=== PATIENT | female | born 1965 | race American Indian/Alaskan Native ===

== ENCOUNTER 2016-07-14 07:08 | Day surgery (SDC) | payer MEDICAID, OTHER ==
[~2016-07-14 07:08] MED LIST: Bupivacaine 0.5% 10 ML SDV ONE; Lactated Ringers 1,000 ML IV SCH; Lidocaine 1% 30 ML SDV ONE; Sodium Chloride 0.9% 10 ML Syringe FLUSH PRN; ceFAZolin 1 GM in Premix Bag 1 BAG IV ONE
[2016-07-14] MEDS ORDERED: Bupivacaine 0.5% 10 ML SDV INJECT ONE ×3 (08:07→10:22)
[2016-07-14] MEDS ORDERED: Lidocaine 1% 30 ML SDV INJECT ONE ×3 (08:07→10:22)
[2016-07-14] MEDS ORDERED: Midazolam 1 MG/ML 2 ML SDV ONE (08:17)
[2016-07-14] MEDS ORDERED: Ketorolac 30 MG/ML SDV ONE (08:18)
[2016-07-14] MEDS ORDERED: Glycopyrrolate 0.2 MG/ML 2 ML SDV ONE (08:18)
[2016-07-14] MEDS ORDERED: fentaNYL 100 MCG/2 ML SDV ONE ×2 (08:18→10:32)
[2016-07-14] MEDS ORDERED: Ondansetron 4 MG/2 ML SDV ONE (08:18)
[2016-07-14] MEDS ORDERED: Dexamethasone 4 MG/ML SDV ONE (08:18)
[2016-07-14] MEDS ORDERED: Lidocaine 2% 20 ML MDV ONE (08:19)
[2016-07-14] MEDS ORDERED: Propofol 200 MG/20 ML SDV ONE (08:19)
[2016-07-14] MEDS ORDERED: HYDROmorphone 1 MG/ML Syringe ONE ×3 (10:45→11:00)
[2016-07-14] MEDS ORDERED: Acetaminophen/oxyCODONE 325-5 MG Tab PO PRN (10:52)
[2016-07-14] MEDS ORDERED: Lidocaine 1% 30 ML SDV ONE (11:15)
--- NOTE | 2016-07-14 11:22 | PCM.OPNOTE ---
- General Post-Op/Procedure Note Date of Surgery/Procedure: 07/14/16 Operative Procedure(s): Left foot 1st metatarsal bunionectomy with zuleyma osteotomy, great toe total matrixectomy Pre Op Diagnosis: Left foot painful bunion, painful dystrophic toenail Post-Op Diagnosis: darryl Anesthesia Technique: General LMA, Local Primary Surgeon: Lucia George Anesthesia Provider: Christiano Patterson EBL in mLs: 5 Complications: none Condition: Good Free Text/Narrative:: Intake & Output 07/13/16 07/14/16 07/14/16 22:59 06:59 14:59 Intake Total 50 Balance 50 Pt tolerated procedure well and was transported to pacu with vss and vascular status intact to left foot. TT 9 mins. [place] 3.0 and 2.0 screws used. Well padded dressing and cam boot placed.
[2016-07-14 13:23] VITALS: BP 124/69
[2016-07-14] MEDS ORDERED: Glycopyrrolate 0.2 MG/ML 2 ML SDV IV ONE (15:53)
[2016-07-14] MEDS ORDERED: Ketorolac 30 MG/ML SDV IVPUSH ONE (15:53)
[2016-07-14] MEDS ORDERED: Propofol 200 MG/20 ML SDV IV ONE (15:53)
[2016-07-14] MEDS ORDERED: Midazolam 1 MG/ML 2 ML SDV IV ONE (15:53)
[2016-07-14] MEDS ORDERED: fentaNYL 100 MCG/2 ML SDV IV ONE (15:53)
[2016-07-14] MEDS ORDERED: Dexamethasone 4 MG/ML SDV IV ONE (15:53)
[2016-07-14] MEDS ORDERED: HYDROmorphone 1 MG/ML Syringe IV ONE (15:55)
[2016-07-14] MEDS ORDERED: Ondansetron 4 MG/2 ML SDV IV ONE (15:55)
--- NOTE | 2016-07-14 21:54 | OR ---
DATE: 07/14/2016 PREOPERATIVE DIAGNOSES: 1. Left foot painful bunion deformity. 2. Left foot painful dystrophic toenail of the hallux. POSTOPERATIVE DIAGNOSES: 1. Left foot painful bunion deformity. 2. Left foot painful dystrophic toenail of the hallux. PROCEDURE PERFORMED: 1. Left foot 1st metatarsal osteotomy/bunionectomy with hardware fixation. 2. Left foot proximal phalanx Emanuel osteotomy. 3. Left foot hallux total matrixectomy. ANESTHESIA: Local with LMA, preoperative block of 10 mL of 1:1 mixture of 1% lidocaine plain and 0.5% Marcaine plain. TOTAL TOURNIQUET TIME: 99 minutes pneumatic ankle tourniquet. ESTIMATED BLOOD LOSS: Minimal. SPECIMEN REMOVED: None. COMPLICATIONS: None. INDICATIONS: Favio is a 50-year-old female, who presents with painful bunions on both feet, left foot is worse than the right. She states she has been dealing with these painful bunions for many years now and they are gradually worsening. She was seeing a doctor out at [facility] before he retired for the bunions. Was told to wear wider shoes and toe spacers, but that did not provide relief. She does get a callus on the big toe area which she files down regularly. She is on her feet for work, works at [employer] 8 hours a day. She also has pain to the left big toenail, which is very thick and she cannot trim them herself. X-rays of the left foot revealed medially deviated 1st metatarsal with IM angle of 14 degrees, hallux abductus angle of 32 degrees, there is a slight interphalangeal angle, possibly also slightly long 2nd metatarsal. The patient voiced good understanding of proposed procedure and possible complications and elects to have surgery at this time. DESCRIPTION OF PROCEDURE: The patient was taken to the operating room, lying in the supine position. After adequate anesthesia induction as described above, the left foot was prepped and draped in the usual sterile fashion. A pneumatic ankle tourniquet was then inflated to 225 mmHg. Attention was then directed to the dorsal aspect of the 1st metatarsal where an approximately 6 cm linear incision was made. Sharp and blunt dissection was performed down to the level of the joint capsule with care to gently retract all neurovascular bundles. An inverted L capsulotomy was made and the capsule was reflected to expose the distal 1st metatarsal. A hypertrophic medial eminence along with a subchondral cyst was noted at this area and was resected with a sagittal saw. The cyst was also curetted out. Blunt dissection was then performed in the 1st interspace to the level of the fibular sesamoid. The adductor hallucis tendon was transected from its attachment to the fibular sesamoid and a section was excised from the foot. A sagittal saw was then used to make a chevron-type osteotomy with a long dorsal arm angulated in a fashion that would allow lengthening of the capital fragment. The capital fragment was then transposed laterally approximately 8 mm and impacted to bring the hallux in a rectus alignment. A 0.062 inch K-wire was used as a guide for this. A K-wire from the screw set was then used as a temporary fixation. Two [place] 3.0 partially-threaded screws were then placed across the osteotomy site and the temporary fixation was then removed. The osteotomy site was noted to be stable with axial valgus and varus forces applied and with fluid range of motion of the 1st MTPJ. Fluoroscopy was used throughout this procedure to verify adequate reduction of the bunion deformity and proper screw fixation. The hallux was noted to still be at an angle due to the interphalangeus, so attention was then directed to the 1st proximal phalanx where an osteotomy was made parallel to the level of the articular cartilage and then a small wedge was taken out with the apex lateral. The bone was then approximated which provided the correction and a 2.0 [place] cannulated screw was placed across the osteotomy site and good compression was noted. Fluoroscopy was then again used to verify proper correction of the deformity and screw fixation. The 1st MTPJ was examined and the screw was not going into the joint. There was noted to be some arthritis at the medial aspect and that was drilled with a 0.062 inch K-wire. Along with the plantar aspect, there was some articular defect there that was drilled as well. The area was then irrigated with copious amounts of sterile saline. A medial capsulorrhaphy was performed. Capsular closure was completed with 2-0 Vicryl and skin closure was completed with 4-0 nylon. The hallux was noted to be in a near rectus alignment at this time. The area was then dressed with Xeroform, fluffs, Kerlix, and Quirino wrap. Attention was then directed to the hallux nail which was freed from the nail bed using a [place] elevator. The entire nail was then removed and a curette was used to clean the nail bed and ensure no matrix was remaining. A phenol was then used to kill the nail matrix 30 seconds x3. The area was then irrigated with saline. Bacitracin and a gauze dressing was placed with Coban. The patient tolerated the procedure and anesthesia well and left the operating room for recovery with vital signs stable and in good condition with vascular status intact to the left foot as noted by immediate hyperemia to all digits upon deflation of the ankle tourniquet. Total tourniquet time was 99 minutes. The patient was then discharged home when she met hospital discharge requirements. [facility] /[id number]
== END 2016-07-14 13:18 | disposition home or self-care (01) ==
LOC: DL.SDS 07:08
PROVIDERS: ATTEND Podiatrist
DX: M21.612 Bunion of left foot (principal); M20.5X2 Other deformities of toe(s) (acquired), left foot; Z90.49 Acquired absence of other specified parts of digestive tract; Z98.890 Other specified postprocedural states; F17.210 Nicotine dependence, cigarettes, uncomplicated; Z88.8 Allergy status to other drugs, medicaments and biological substances; Z79.82 Long term (current) use of aspirin; Z79.899 Other long term (current) drug therapy
CPT/HCPCS: 01480; 11750; 28296; 28298; 80305; 81025; J0690; J1100; J1170; J1885; J2250; J2405; J2704; J3010; J7120; C1713; J3490

== ENCOUNTER 2017-03-23 07:52 | Day surgery (SDC) | payer MEDICAID ==
[~2017-03-23 07:52] MED LIST changes: -Bupivacaine 0.5% 10 ML SDV ONE; -Lidocaine 1% 30 ML SDV ONE
[2017-03-23] MEDS ORDERED: Midazolam 1 MG/ML 2 ML SDV IV ONE (07:53)
[2017-03-23] MEDS ORDERED: fentaNYL 100 MCG/2 ML SDV IV ONE (07:53)
[2017-03-23] MEDS ORDERED: Dexamethasone 4 MG/ML SDV IV ONE (07:53)
[2017-03-23] MEDS ORDERED: Propofol 1,000 MG/100 ML SDV IV ONE (07:53)
[2017-03-23] MEDS ORDERED: Ondansetron 4 MG/2 ML SDV IV ONE (07:53)
[2017-03-23] MEDS ORDERED: Lidocaine 1% 30 ML SDV INJECT ONE ×5 (07:53→12:09)
[2017-03-23 08:22] LABS: ANION GAP 14.5; CHLORIDE,CL 97 mmol/L (101-111); SODIUM,NA 137 mmol/L (135-145)
[2017-03-23] MEDS ORDERED: Lidocaine 1% 30 ML SDV ONE (10:41)
[2017-03-23] MEDS ORDERED: Bupivacaine 0.5% 10 ML SDV ONE (10:41)
[2017-03-23] MEDS ORDERED: Bupivacaine 0.5% 10 ML SDV INJECT ONE ×4 (11:08→12:09)
[2017-03-23] MEDS ORDERED: Acetaminophen/oxyCODONE 325-5 MG Tab PO PRN (12:36)
--- NOTE | 2017-03-23 12:36 | PCM.OPNOTE ---
- General Post-Op/Procedure Note Date of Surgery/Procedure: 03/23/17 Operative Procedure(s): right foot first metatarsal osteotomy/bunionectomy, great toe permanent matrixectomy Pre Op Diagnosis: right foot painful bunion, great toenail painful ingrown Post-Op Diagnosis: darryl Anesthesia Technique: Local, MAC Primary Surgeon: Lucia George Anesthesia Provider: Dhaval Neumann EBL in mLs: 5 Complications: none Condition: Good Free Text/Narrative:: Intake & Output 03/22/17 03/23/17 03/23/17 22:59 06:59 14:59 Intake Total 50 Balance 50 Pt tolerated procedure well and was transported to recovery with vss and vascular status intact to right foot. TT 56 mins. [place] 3.0 cannulated screws to first metatarsal. Well padded compression dressing applied.
[2017-03-24 07:04] VITALS: BP 136/87
--- NOTE | 2017-03-24 12:48 | OR ---
DATE: 03/23/2017 PREOPERATIVE DIAGNOSES: 1. Right foot painful bunion deformity. 2. Painful ingrown toenail of the right great toe. POSTOPERATIVE DIAGNOSES: 1. Right foot painful bunion deformity. 2. Painful ingrown toenail of the right great toe. PROCEDURES PERFORMED: 1. Right foot first metatarsal osteotomy/bunionectomy. 2. Right great toenail permanent matrixectomy. ANESTHESIA: Local MAC with preoperative local block of 10 mL of 1:1 mixture of 1% lidocaine plain and 0.5% Marcaine plain. TOURNIQUET TIME: 56 minutes of pneumatic ankle tourniquet. ESTIMATED BLOOD LOSS: Minimal. SPECIMEN: None. COMPLICATIONS: None. INDICATIONS: Favio is a 51-year-old female who returns for recheck of left foot bunionectomy and now wants surgery on her right foot. Her left foot has healed well and she is no longer having any pain or issues with that foot. She would now like her right foot bunion surgery done. The pain is present to the bunion area on the right foot whenever she is standing or walking. She has tried wider shoes, activity modifications, bunion padding with no relief. Surgery for the left foot was on 07/14/2016, and she is well healed. X-rays of the right foot reveals medially deviated 1st metatarsal with IM angle of 9 degrees, but there is a metatarsus adductus component present. Bipartite sesamoid. The patient voiced good understanding of proposed procedure and possible complications and would like to have surgery at this time. She is also complaining of right great toenail that is painful for her and we did remove that left great toenail for her at the last surgery and she would like the right great toenail permanently removed today as well. DESCRIPTION OF PROCEDURE: The patient was taken to the operating room, lying in supine position. After adequate anesthesia induction as described above, right foot was prepped and draped in the usual sterile fashion. A pneumatic ankle tourniquet was inflated to 225 mmHg. Attention was then directed to the dorsal aspect of the 1st metatarsophalangeal joint of the right foot where an approximately 6 cm linear incision was made. Sharp and blunt dissection were performed down to the level of the joint capsule with care to gently retract all neurovascular bundles. An inverted-L capsulotomy was made and the capsule was reflected to expose the distal 1st metatarsal. A hypertrophic medial eminence was noted at this time and was resected with sagittal saw. Blunt dissection was performed in the 1st interspace to the level of the fibular sesamoid and the adductor hallucis tendon was transected from its attachment. A sagittal saw was used to make a chevron-type osteotomy with a long dorsal arm angulated in a fashion that would allow for dorsal displacement and maintenance of the length with lateral transposition of the capital fragment. The capital fragment was then transposed laterally 7 mm and impacted to bring the hallux in a rectus alignment. A 0.062 inch K-wire was used as temporary fixation. Two partially- threaded cannulated screws from [employer] 3.0 were then inserted at the osteotomy site. The osteotomy site was noted to be stable with axial, valgus, and varus force applied with good range of motion of 1st MTPJ. Fluoroscopy was used throughout this procedure to verify adequate reduction of the bunion deformity and proper screw placement and fixation. A medial capsulorrhaphy was performed. The area was flushed with copious amounts of sterile saline. Capsular closure was completed with 3-0 Vicryl, and skin closure was completed with 4-0 nylon. The hallux was noted to be in a near rectus alignment at this time. Attention was then directed to the right great toenail, which was completely removed using a [place] elevator. The nail matrix was curetted and phenol was applied to the area x3 for 30 seconds with curette between to ensure no regrowth. The area was then flushed with copious amounts of sterile saline. The incision and the toenail area were covered with a Xeroform dressing, fluffs, Webril, and a well- padded compressive dressing. The patient tolerated the procedure and anesthesia well and left to the recovery room with vital signs stable and vascular status intact to the right foot as noted by immediate hyperemia upon deflation of the ankle tourniquet. The patient was then discharged home when she met hospital discharge requirements. [facility] /[id number]
== END 2017-03-23 14:00 | disposition home or self-care (01) ==
LOC: DL.SDS 07:52
PROVIDERS: ATTEND Podiatrist
DX: L60.0 Ingrowing nail (principal); M21.611 Bunion of right foot; Z88.8 Allergy status to other drugs, medicaments and biological substances; F17.210 Nicotine dependence, cigarettes, uncomplicated; Z79.82 Long term (current) use of aspirin; Z79.899 Other long term (current) drug therapy
CPT/HCPCS: 01470; 11750; 28296; 36415; 80053; 85027; C1713; J0690; J1100; J2250; J2405; J2704; J3010; J7120; 76000

== ENCOUNTER 2017-12-05 02:59 | Emergency (ER) | payer MEDICAID ==
[2017-12-05] MEDS ORDERED: Acetaminophen/HYDROcodone 325-10 MG Tab PO ONE (03:00)
[2017-12-05] MEDS ORDERED: Amoxicillin/Clavulanate K 875-125 MG Tab PO ONE (03:00)
[2017-12-05 03:10] VITALS: BP 153/107
[2017-12-05] MEDS ORDERED: fentaNYL 100 MCG/2 ML SDV IVPUSH ONE ×2 (03:26→03:50)
[2017-12-05] MEDS ORDERED: cefTRIAXone 1 GM Vial IVPUSH ONE (03:26)
[2017-12-05] MEDS ORDERED: Ondansetron 4 MG/2 ML SDV IV ONE (03:27)
[2017-12-05 03:57] LABS: ANION GAP 13.7; CHLORIDE,CL 103 mmol/L (101-111); SODIUM,NA 137 mmol/L (135-145)
[2017-12-05] MEDS ORDERED: LORazepam 2 MG/ML Syringe IVPUSH ONE (04:20)
[2017-12-05] MEDS ORDERED: Amoxicillin/Clavulanate K 875-125 MG Tab ONE (05:22)
[2017-12-05] MEDS ORDERED: Acetaminophen/HYDROcodone 325-10 MG Tab ONE (05:24)
--- NOTE | 2017-12-05 05:26 | EDM.PDOC ---
"ED HPI GENERAL MEDICAL PROBLEM - General Chief Complaint: ENT Problem Stated Complaint: EAR ACHE [id number] Time Seen by Provider: 12/05/17 03:10 Source of Information: Reports: Patient History Limitations: Reports: No Limitations - History of Present Illness INITIAL COMMENTS - FREE TEXT/NARRATIVE: c/o severe left ear pain and drainage, Seen 11/[address] [facility] for draining ear given cortisporin ear drops. Unable to be seen again has not slept past few night due to pain. Fever/chills today. Treatments [employer]: Reports: Acetaminophen Left Ear Pain Score (Numeric/FACES): 9 - Related Data Allergies Allergy/AdvReac Type Severity Reaction Status Date / Time codeine Allergy Nausea and Verified 12/05/17 03:06 Vomiting Home Meds: Home Meds Aspirin 1 tab PO DAILY 07/13/16 [History] DULoxetine [Cymbalta] 1 tab PO BEDTIME 07/13/16 [History] Gabapentin [Neurontin] 1 tab PO TID 07/13/16 [History] traMADol [Ultram] 1 tab PO BID PRN 07/13/16 [History] Past Medical History - Past Health History Medical/Surgical History: Denies Medical/Surgical History HEENT History: Reports: None Cardiovascular History: Reports: None Respiratory History: Reports: None Gastrointestinal History: Reports: None Genitourinary History: Reports: None 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: Reports: Musculoskeletal History: Reports: Arthritis Other Musculoskeletal History: arthritis of both knees Neurological History: Reports: None Psychiatric History: Reports: None Endocrine/Metabolic History: Reports: None Hematologic History: Reports: None Immunologic History: Reports: None Oncologic (Cancer) History: Reports: None Dermatologic History: Reports: None - Infectious Disease History Infectious Disease History: Reports: None, Chicken Pox - Past Surgical History HEENT Surgical History: Reports: Tonsillectomy Cardiovascular Surgical History: Reports: None Respiratory Surgical History: Reports: None GI Surgical History: Reports: Appendectomy Female Surgical History: Reports: Section Musculoskeletal Surgical History: Reports: Other (See Below) Other Musculoskeletal Surgeries/Procedures:: right knee surgery (cementing) 2016. back surg. tibia scope Social & Family History - Family History Family Medical History: Noncontributory Cardiac: Reports: High Cholesterol, Hypertension Endocrine/Metabolic: Reports: Diabetes, type II - Tobacco Use Smoking Status *Q: Current Every Day Smoker Years of Tobacco use: 35 Packs/Tins Daily: 0.5 Used Tobacco, but Quit: No Second Hand Smoke Exposure: Yes - Caffeine Use Caffeine Use: Reports: Coffee - Recreational Drug Use Recreational Drug Use: No ED ROS ENT - Review of Systems Review Of Systems: ROS reveals no pertinent complaints other than HPI. ED EXAM, ENT - Physical Exam Exam: See Below Exam Limited By: No Limitations General Appearance: Alert, Anxious, Moderate Distress, Thin Eye Exam: Bilateral Eye: EOMI Ears: Normal Canal (right), Mastoid Swelling (left), Mastoid Tenderness (left), Canal Discharge (copious brown anne drainage), Canal Swelling (left) Nose: Normal Inspection Mouth/Throat: Normal Inspection Head: Atraumatic, Normocephalic Neck: Full Range of Motion, Lymphadenopathy (L) Respiratory/Chest: No Respiratory Distress, Lungs Clear, Normal Breath Sounds Cardiovascular: Normal Peripheral Pulses, Tachycardia Back: Full Range of Motion Extremities: Normal Inspection Psychiatric: Anxious Skin: Warm, Wound/Incision (crusting outer left ear, cuticles fingers red, Left 34d red mild swelling around nail. ) Course - Vital Signs Last Recorded V/S: Last Vital Signs Temp 99.8 F 12/05/17 03:09 Pulse 137 H 12/05/17 03:09 Resp 20 12/05/17 03:09 BP 153/107 H 12/05/17 03:09 Pulse Ox 96 12/05/17 03:09 - Orders/Labs/Meds Orders: Active Orders 24 hr Category Date Time Status Head wo Cont [CT] Urgent Exams 12/05/17 03:24 Taken CULTURE EAR [RM] Stat Lab 12/05/17 03:20 Received UA W/MICROSCOPIC [URIN] Stat Lab 12/05/17 04:25 Ordered Labs: Laboratory Tests 12/05/17 12/05/17 12/05/17 Range/Units 03:25 03:25 03:25 WBC 11.2 H (5.0-10.0) 10^3/uL RBC 3.72 L (4.2-5.4) 10^6/uL Hgb 11.8 L D (12.0-16.0) g/dL Hct 35.9 L (37.0-47.0) % MCV 96.5 (80-100) fL MCH 31.7 (27.0-34.0) pg MCHC 32.9 L (33.0-35.0) g/dL Plt Count 284 D (150-450) 10^3/uL Neut % (Auto) 76.1 H (42.2-75.2) % Lymph % (Auto) 19.3 L (20.5-50.1) % [place] % (Auto) 3.6 (2-8) % Eos % (Auto) 0.7 L (1.0-3.0) % Baso % (Auto) 0.3 (0.0-1.0) % Sodium 137 (135-145) mmol/L Potassium 3.7 (3.6-5.0) mmol/L Chloride 103 (101-111) mmol/L Carbon Dioxide 24.0 (21.0-31.0) mmol/L Anion Gap 13.7 BUN 11 (7-18) mg/dL Creatinine 0.5 L (0.6-1.3) mg/dL Est Cr Clr Drug Dosing 155.34 mL/min Estimated GFR (MDRD) > 60 BUN/Creatinine Ratio 22.00 Glucose 83 (74-105) mg/dL Lactic Acid 1.9 (0.5-2.2) mmol/L Calcium 7.6 L (8.4-10.2) mg/dl Total Bilirubin 0.3 (0.2-1.0) mg/dL AST 37 (10-42) IU/L ALT 32 (10-60) IU/L Alkaline Phosphatase 63 (42-121) IU/L Total Protein 8.1 (6.7-8.2) g/dl Albumin 2.6 L (3.2-5.5) g/dl Globulin 5.5 Albumin/Globulin Ratio 0.47 Urine Color (YELLOW) Urine Appearance (CLEAR) Urine pH (5.0-9.0) Ur Specific [place] (1.005-1.030) Urine Protein (NEGATIVE) Urine Glucose (UA) (NEGATIVE) Urine Ketones (NEGATIVE) Urine Occult Blood (NEGATIVE) Urine Nitrite (NEGATIVE) Urine Bilirubin (NEGATIVE) Urine Urobilinogen (0.2-1.0) mg/dL Ur Leukocyte Esterase (NEGATIVE) Urine RBC /HPF Urine WBC (0-5/HPF) /HPF Ur Epithelial Cells /HPF Urine Bacteria (0-FEW/HPF) /HPF Urine Mucus /LPF Urine Opiates Screen (NEGATIVE) Ur Oxycodone Screen (NEGATIVE) Urine Methadone Screen (NEGATIVE) Ur Barbiturates Screen (NEGATIVE) U Tricyclic Antidepress (NEGATIVE) Ur Phencyclidine Scrn (NEGATIVE) Ur Amphetamine Screen (NEGATIVE) U Methamphetamines Scrn (NEGATIVE) Urine MDMA Screen (NEGATIVE) U Benzodiazepines Scrn (NEGATIVE) Urine Cocaine Screen (NEGATIVE) U Marijuana (THC) Screen (NEGATIVE) 12/05/17 12/05/17 Range/Units 04:25 04:25 WBC (5.0-10.0) 10^3/uL RBC (4.2-5.4) 10^6/uL Hgb (12.0-16.0) g/dL Hct (37.0-47.0) % MCV (80-100) fL MCH (27.0-34.0) pg MCHC (33.0-35.0) g/dL Plt Count (150-450) 10^3/uL Neut % (Auto) (42.2-75.2) % Lymph % (Auto) (20.5-50.1) % [place] % (Auto) (2-8) % Eos % (Auto) (1.0-3.0) % Baso % (Auto) (0.0-1.0) % Sodium (135-145) mmol/L Potassium (3.6-5.0) mmol/L Chloride (101-111) mmol/L Carbon Dioxide (21.0-31.0) mmol/L Anion Gap BUN (7-18) mg/dL Creatinine (0.6-1.3) mg/dL Est Cr Clr Drug Dosing mL/min Estimated GFR (MDRD) BUN/Creatinine Ratio Glucose (74-105) mg/dL Lactic Acid (0.5-2.2) mmol/L Calcium (8.4-10.2) mg/dl Total Bilirubin (0.2-1.0) mg/dL AST (10-42) IU/L ALT (10-60) IU/L Alkaline Phosphatase (42-121) IU/L Total Protein (6.7-8.2) g/dl Albumin (3.2-5.5) g/dl Globulin Albumin/Globulin Ratio Urine Color Yellow (YELLOW) Urine Appearance Cloudy (CLEAR) Urine pH 7.0 (5.0-9.0) Ur Specific [place] 1.020 (1.005-1.030) Urine Protein Trace H (NEGATIVE) Urine Glucose (UA) Negative (NEGATIVE) Urine Ketones Negative (NEGATIVE) Urine Occult Blood Large H (NEGATIVE) Urine Nitrite Negative (NEGATIVE) Urine Bilirubin Negative (NEGATIVE) Urine Urobilinogen 1.0 (0.2-1.0) mg/dL Ur Leukocyte Esterase Negative (NEGATIVE) Urine RBC >100 H /HPF Urine WBC 5-10 H (0-5/HPF) /HPF Ur Epithelial Cells Rare /HPF Urine Bacteria Rare (0-FEW/HPF) /HPF Urine Mucus Rare /LPF Urine Opiates Screen Negative (NEGATIVE) Ur Oxycodone Screen Positive H (NEGATIVE) Urine Methadone Screen Negative (NEGATIVE) Ur Barbiturates Screen Negative (NEGATIVE) U Tricyclic Antidepress Negative (NEGATIVE) Ur Phencyclidine Scrn Negative (NEGATIVE) Ur Amphetamine Screen Negative (NEGATIVE) U Methamphetamines Scrn Positive H (NEGATIVE) Urine MDMA Screen Negative (NEGATIVE) U Benzodiazepines Scrn Negative (NEGATIVE) Urine Cocaine Screen Negative (NEGATIVE) U Marijuana (THC) Screen Positive H (NEGATIVE) Meds: Medications Discontinued Medications Generic Name Dose Route Start Last Admin Trade Name Freq PRN Reason Stop Dose Admin Ceftriaxone Sodium 1 gm 12/05/17 03:26 12/05/17 03:37 Rocephin IVPUSH 12/05/17 03:27 1 gm ONETIME ONE Administration Fentanyl 25 mcg 12/05/17 03:26 12/05/17 03:36 Sublimaze IVPUSH 12/05/17 03:27 25 mcg ONETIME ONE Administration Fentanyl 25 mcg 12/05/17 03:50 12/05/17 03:56 Sublimaze IVPUSH 12/05/17 03:51 25 mcg ONETIME ONE Administration Lorazepam 1 mg 12/05/17 04:20 12/05/17 04:28 Ativan IVPUSH 12/05/17 04:21 1 mg ONETIME ONE Administration Ondansetron HCl 4 mg 12/05/17 03:27 12/05/17 03:35 Zofran IV 12/05/17 03:28 4 mg ONETIME ONE Administration - Radiology Interpretation Free Text/Narrative:: [facility] Call: [phone] assistance Online chat: [email or web address] Name: JAMAR GLEZ Age: 52Years F Date: 12/05/2017 SSN: -- : [id number] Study: CT HEAD WO Requesting Physician: PAN SORENSEN Images: 144 Addl Studies: Provided Clinical History: Contrast: Without Contrast Medium: Contrast Amount: Contrast Method: Page 1 of 2 EXAM: CT Head Without Intravenous Contrast CLINICAL HISTORY: 52 years old, female; Signs and symptoms; Fever and other: Fever, chills, left ear pain. Copious purulent discharge left ear. TECHNIQUE: Axial computed tomography images of the head/brain without intravenous contrast. All CT scans at this facility use at least one of these dose optimization techniques: automated exposure control; mA and/or kV adjustment per patient size (includes targeted exams where dose is matched to clinical indication); or iterative reconstruction. Coronal and sagittal reformatted images were created and reviewed. COMPARISON: No relevant prior studies available. FINDINGS: Brain: Unremarkable. No hemorrhage. No significant white matter disease. No edema. Ventricles: Unremarkable. No ventriculomegaly. Bones/joints: Unremarkable. No acute fracture. Soft tissues: Unremarkable. Sinuses: Unremarkable as visualized. No acute sinusitis. Mastoid air cells: Fluid within the left mastoid air cells as well as in the middle ear canal. IMPRESSION: Fluid within the left mastoid air cells as well as in the middle ear canal. Consistent with mastoiditis as well as of otitis media on the left Thank you for allowing us to participate in the care of your patient. JAMAR GLEZ | Final Radiology Report CONFIDENTIALITY STATEMENT This report is intended only for use by the referring physician, and only in accordance with law. If you received this in error, call [phone]. Page 2 of 2 Dictated and Authenticated by: Cruz Gar MD - Re-Assessments/Exams Free Text/Narrative Re-Assessment/Exam: 12/05/17 05:[address] Lawler ENT ALtru recommendations for Augmentin and ofloxacin until culture results returned. Cloinc follow up this week and if no improvement may need referral to ENT. Departure - Departure Time of Disposition: 05:26 Disposition: Home, Self-Care 01 Condition: Good Clinical Impression: Mastoiditis of left side, Positive urine drug screen Otitis media Qualifiers: Otitis media type: suppurative Chronicity: acute Laterality: left Recurrence: not specified as recurrent Spontaneous tympanic membrane rupture: without spontaneous rupture Qualified Code(s): H66.002 - Acute suppurative otitis media without spontaneous rupture of ear drum, left ear - Discharge Information *PRESCRIPTION DRUG MONITORING PROGRAM REVIEWED*: Yes *COPY OF PRESCRIPTION DRUG MONITORING REPORT IN PATIENT NORA: No Instructions: Mastoiditis, Pediatric, Otitis Media, Adult, [id number] Additional Instructions: Clinic follow up this week recheck ear, reassess antibiotic with culture results and determine need for ENT referral Augmentin 875 one twice daily for 14 days ofloxacin ear drops 10 twice daily to left ear good hand washing hydrocodone 10/325 one every 6 hours for severe pain #2 ibuprofen 600mg one every 6 hours as needed for pain - My Orders Last 24 Hours: My Active Orders 12/05/17 03:20 CULTURE EAR [RM] Stat 12/05/17 03:24 Head wo Cont [CT] Urgent 12/05/17 04:25 UA W/MICROSCOPIC [URIN] Stat - Assessment/Plan Last 24 Hours: My Active Orders 12/05/17 03:20 CULTURE EAR [RM] Stat 12/05/17 03:24 Head wo Cont [CT] Urgent 12/05/17 04:25 UA W/MICROSCOPIC [URIN] Stat"
== END 2017-12-05 05:35 | disposition home or self-care (01) ==
LOC: DL.ED 02:59
DX: H66.002 Acute suppurative otitis media without spontaneous rupture of ear drum, left ear (principal); H70.92 Unspecified mastoiditis, left ear; R82.5 Elevated urine levels of drugs, medicaments and biological substances; F17.210 Nicotine dependence, cigarettes, uncomplicated; Z79.82 Long term (current) use of aspirin; Z79.899 Other long term (current) drug therapy; Z88.5 Allergy status to narcotic agent
CPT/HCPCS: 36415; 70450; 80053; 80305; 81001; 83605; 85025; 87070; 96374; 96375; 99283; J0696; J2060; J2405; J3010; 87077; A9270-GY

== ENCOUNTER 2017-12-12 16:03 | Emergency (ER) | payer MEDICAID ==
[2017-12-12 16:34] VITALS: BP 110/69
--- NOTE | 2017-12-12 17:09 | CT ---
Clinical history: 52-year-old 180 pounds female smoker treated on 05 December 2017 for "mastoiditis" (fever, chills, purulent discharge left ear) now in the emergency department complaining of left ear pain. Scan technique: Volume acquisition of data from the head head and brain obtained the patient was lyin g supine on the Siemens multi slice scanner [place], [place]. All data archived in the PACS system for storage, reformatting axial/sagittal/coronal planes and study (bone/ brain windows). Interpretation: 1. Asymmetric opacification air cells of the mastoid sinus on the left consistent with fluid seen on 05 December 2017 exam. 2. Relative decreased periauricular soft tissue swelling and fluid in the middle ear canal. 3. No new evidence of bony trabecular destruction or osteomyelitis. No abnormal air-fluid levels. 4. Clear pneumatization of the contralateral mastoid sinus. Symmetric clear pneumatization of the par anasal sinuses. 5. No new evidence cerebellopontine angle mass lesion or abscess posterior fossa. 6. Symmetric tovar-white matter pattern and underlying mirror-image normal reticular system. No suprat entorial mass lesion, focal areas of ischemic infarct or signs of acute intracerebral/intraventricula r/subarachnoid bleed. 7. Uniformly thick bony calvarium. No abnormal extracerebral/intracranial epidural or subdural hemato ma. CONCLUSION: Abnormal.....persistent asymmetric clouding of the mastoid sinus, on the left....but, re lative improvement i.e. decreased periauricular edema and fluid in the left middle ear canal. No new sign of osteomyelitis or abscess. No foreign bodies.
[2017-12-12] MEDS ORDERED: Ketorolac 30 MG/ML SDV IM ONE (17:19)
--- NOTE | 2017-12-12 17:26 | EDM.PDOC ---
Scribed by Azeb Garrett 12/12/17 [id number] for Jarrell Brown PA ED HPI GENERAL MEDICAL PROBLEM - General Chief Complaint: ENT Problem Stated Complaint: EAR PAIN [id number] Time Seen by Provider: 12/12/17 16:15 Source of Information: Reports: Patient, RN, RN Notes Reviewed History Limitations: Reports: No Limitations - History of Present Illness INITIAL COMMENTS - FREE TEXT/NARRATIVE: This 52-year-old female patient was sent to the emergency department from "[facility]".The patient was seen in the ED on 12/05/17 for mastoiditis and was following up for a possible ENT referral. Dr. Martino sent the patient to the ED for a CT scan due to the fact that the patient continues to have pain. Dr. Martino reports that he has not actually seen the patient, but knows that she needs a follow-up CT. Dr. Martino did not call to get a referral to ENT due to it possibly taking 2 days to 2 weeks to get the referral done. The patient states that she has pain at the top of her head to the left side. She has increased symptoms at night. She is taking Ibuprofen and Tylenol with no relief. She is taking antibiotics as prescribed (pills and drops). Previous visit at the [facility] was 2 weeks ago. No ENT referral yet. Onset: Gradual Duration: Getting Worse Location: Reports: Other (mastoids) Quality: Reports: Ache Severity: Moderate Improves with: Reports: None Worsens with: Reports: None Associated Symptoms: Reports: No Other Symptoms - Related Data Allergies Allergy/AdvReac Type Severity Reaction Status Date / Time codeine Allergy Nausea and Verified 12/12/17 16:15 Vomiting Home Meds: Home Meds Aspirin 1 tab PO DAILY 07/13/16 [History] DULoxetine [Cymbalta] 1 tab PO BEDTIME 07/13/16 [History] Gabapentin [Neurontin] 1 tab PO TID 07/13/16 [History] traMADol [Ultram] 1 tab PO BID PRN 07/13/16 [History] Past Medical History - Past Health History Medical/Surgical History: Denies Medical/Surgical History HEENT History: Reports: None Cardiovascular History: Reports: None Respiratory History: Reports: None Gastrointestinal History: Reports: None Genitourinary History: Reports: None 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: Musculoskeletal History: Reports: Arthritis Other Musculoskeletal History: arthritis of both knees Neurological History: Reports: None Psychiatric History: Reports: None Endocrine/Metabolic History: Reports: None Hematologic History: Reports: None Immunologic History: Reports: None Oncologic (Cancer) History: Reports: None Dermatologic History: Reports: None - Infectious Disease History Infectious Disease History: Reports: None, Chicken Pox - Past Surgical History HEENT Surgical History: Reports: Tonsillectomy Cardiovascular Surgical History: Reports: None Respiratory Surgical History: Reports: None GI Surgical History: Reports: Appendectomy Female Surgical History: Reports: Section Musculoskeletal Surgical History: Reports: Other (See Below) Other Musculoskeletal Surgeries/Procedures:: right knee surgery (cementing) 2016. back surg. tibia scope Social & Family History - Family History Family Medical History: Noncontributory Cardiac: Reports: High Cholesterol, Hypertension Endocrine/Metabolic: Reports: Diabetes, type II - Caffeine Use Caffeine Use: Reports: Coffee ED ROS ENT - Review of Systems Review Of Systems: ROS reveals no pertinent complaints other than HPI. ED EXAM, ENT - Physical Exam Exam: See Below Exam Limited By: No Limitations General Appearance: Alert, WD/WN, No Apparent Distress Eye Exam: Bilateral Eye: EOMI, Normal Inspection, PERRL Ears: Other (left ear drainage (antibiotic drops). Pain left mastoid to top of head.) Nose: Normal Inspection, Normal Mucousa, No Blood Mouth/Throat: Normal Inspection, Normal Gums, Normal Lips, Normal Oropharynx, Normal Teeth Head: Atraumatic, Normocephalic Neck: Normal Inspection, Supple, Non-Tender, Full Range of Motion Respiratory/Chest: No Respiratory Distress, Lungs Clear, Normal Breath Sounds, No Accessory Muscle Use, Chest Non-Tender Cardiovascular: Normal Peripheral Pulses, Regular Rate, Rhythm, No Edema, No Gallop, No JVD, No Murmur, No Rub GI/Abdominal: Normal Bowel Sounds, Soft, Non-Tender, No Organomegaly, No Distention, No Abnormal Bruit, No Mass (Female) Exam: Deferred Rectal (Female) Exam: Deferred Back: Normal Inspection Extremities: Normal Inspection, Normal Range of Motion, Non-Tender, No Pedal Edema, Normal Capillary Refill Neurological: Alert, Oriented, CN II-XII Intact, Normal Cognition, Normal Gait, Normal Reflexes, No Motor/Sensory Deficits Psychiatric: Other (depresseddueto pain) Skin: Warm, Dry, Intact, Normal Color, No Rash Lymphatic: No Adenopathy Course - Vital Signs Last Recorded V/S: Last Vital Signs Temp 36.6 C 12/12/17 16:30 Pulse 91 12/12/17 16:30 Resp 20 12/12/17 16:30 BP 110/69 12/12/17 16:30 Pulse Ox 99 12/12/17 16:30 - Orders/Labs/Meds Meds: Medications Discontinued Medications Generic Name Dose Route Start Last Admin Trade Name Britta PRN Reason Stop Dose Admin Ketorolac Tromethamine 60 mg 12/12/17 17:19 Toradol IM 12/12/17 17:20 ONETIME ONE Departure - Departure Time of Disposition: 17:22 Disposition: Home, Self-Care 01 Condition: Fair Clinical Impression: Mastoiditis of left side - Discharge Information *PRESCRIPTION DRUG MONITORING PROGRAM REVIEWED*: No *COPY OF PRESCRIPTION DRUG MONITORING REPORT IN PATIENT NORA: No Forms: ED Department Discharge Care Plan Goals: The patient was advised of the examination and CT results during the visit. The patient was given an injection of Toradol while in the ED. The patient was discharged with a script for Toradol (10 mg) #20 to take 1 by mouth every 6 hours as needed for pain. The patient should follow-up with the [facility] for a referral to ENT for continued evaluation and further management. If the patient has any additional symptoms or concerns, the patient should visit her primary care facility or return to the emergency department. I have read and agree with the documentation that has been completed regarding this visit. By signing this record, I attest that the documentation was completed in my physical presence and is an accurate record of the encounter.
== END 2017-12-12 17:37 | disposition home or self-care (01) ==
LOC: DL.ED 16:03
DX: H70.92 Unspecified mastoiditis, left ear (principal); Z79.82 Long term (current) use of aspirin; Z88.5 Allergy status to narcotic agent
CPT/HCPCS: 70450; 96372; 99283; J1885

== ENCOUNTER 2020-05-06 13:24 | Emergency (ER) | payer MEDICAID ==
[2020-05-06] MEDS ORDERED: Propofol 200 MG/20 ML SDV IV ONE (13:25)
--- NOTE | 2020-05-06 13:37 | EDM.PDOC ---
ED HPI GENERAL MEDICAL PROBLEM - General Chief Complaint: Upper Extremity Injury/Pain Stated Complaint: BROKEN ARM Time Seen by Provider: 05/06/20 13:35 Source of Information: Reports: Patient, RN, RN Notes Reviewed History Limitations: Reports: No Limitations - History of Present Illness INITIAL COMMENTS - FREE TEXT/NARRATIVE: Pt presents to ER by POV with c/o right upper arm/shoulder, and right chest wall pain. Pt states that last night she slipped on some steps and fell in a rail. Today the pain was even worse than at the time of the injury. Denies head injury, LOC, or any other areas of pain. Last ate around 0930-1000HRS this morning (5 hours ago). Onset Date: 05/05/20 Onset Time: 23:00 Duration: Constant Location: Reports: Chest, Upper Extremity, Right Quality: Reports: Ache Severity: Severe Improves with: Reports: None Worsens with: Reports: Movement Context: Reports: Other (Fall) Associated Symptoms: Reports: No Other Symptoms Right Upper Arm Pain Score (Numeric/FACES): 10 - Related Data Allergies Allergy/AdvReac Type Severity Reaction Status Date / Time codeine Allergy Nausea and Verified 05/06/20 13:40 Vomiting Home Meds: Home Meds Aspirin 1 tab PO DAILY 07/13/16 [History] DULoxetine [Cymbalta] 1 tab PO BEDTIME 07/13/16 [History] Gabapentin [Neurontin] 1 tab PO TID 07/13/16 [History] traMADol [Ultram] 1 tab PO BID PRN 07/13/16 [History] Past Medical History - Past Health History Medical/Surgical History: Denies Medical/Surgical History HEENT History: Reports: None Cardiovascular History: Reports: None Respiratory History: Reports: None Gastrointestinal History: Reports: None Genitourinary History: Reports: 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: Musculoskeletal History: Reports: Arthritis Other Musculoskeletal History: arthritis of both knees Neurological History: Reports: None Psychiatric History: Reports: None Endocrine/Metabolic History: Reports: None Hematologic History: Reports: None Immunologic History: Reports: None Oncologic (Cancer) History: Reports: None Dermatologic History: Reports: None - Infectious Disease History Infectious Disease History: Reports: None, Chicken Pox - Past Surgical History HEENT Surgical History: Reports: Tonsillectomy Cardiovascular Surgical History: Reports: None Respiratory Surgical History: Reports: None GI Surgical History: Reports: Appendectomy Female Surgical History: Reports: Section Musculoskeletal Surgical History: Reports: Other (See Below) Other Musculoskeletal Surgeries/Procedures:: right knee surgery (cementing) 2016. back surg. tibia scope Social & Family History - Family History Family Medical History: No Pertinent Family History Cardiac: Reports: High Cholesterol, Hypertension Endocrine/Metabolic: Reports: Diabetes, type II - Caffeine Use Caffeine Use: Reports: Coffee - Living Situation & Occupation Living situation: Reports: with Family Review of Systems - Review of Systems Review Of Systems: Comprehensive ROS is negative, except as noted in HPI. ED EXAM, GENERAL - Physical Exam Exam: See Below Exam Limited By: No Limitations General Appearance: Alert, WD/WN, No Apparent Distress, Other (Uncomfortable appearing) Eye Exam: Bilateral Eye: Normal Inspection Nose: Normal Inspection Throat/Mouth: Normal Inspection Head: Atraumatic, Normocephalic Neck: Normal Inspection Respiratory/Chest: No Respiratory Distress, Lungs Clear, Decreased Breath Sounds, Splinting (Rt chest), Other (Right lateral chest wall tenderness, no visible bruising or swelling) Cardiovascular: Normal Peripheral Pulses, Regular Rate, Rhythm GI/Abdominal: Normal Bowel Sounds, Soft, Non-Tender Back Exam: Normal Inspection Extremities: Normal Capillary Refill, Arm Pain (Rt shoulder deformity consistent with an anterior dislocation of the humeral head.) Neurological: Alert, Oriented, Normal Cognition, Normal Gait, No Motor/Sensory Deficits Psychiatric: Normal Mood Skin Exam: Warm, Dry, Intact, Normal Color, No Rash ED TRAUMA EXTREMITY PROCEDURES - Joint Reduction Right Shoulder Sedation: Conscious Sedation (by Charly (LIONEL)) Pre-Procedure NV Status: Normal Post-Procedure NV Status: Normal Technique: Traction/Counter Traction Number of Attempts: 1 Post-Reduction Imaging: Completely Reduced, Fracture Seen Joint Reduction Complications: No - Splinting Right Upper Extremity Splint Site: Right shoulder Pre-Procedure NV Status: Normal Post-Procedure NV Status: Normal Splint Material: Velcro Splint Design: Other (Shoulder immobilizer) Provider Post-Splint Application NV Check: NV Status Normal, Good Position Complications: No Course - Vital Signs Last Recorded V/S: Last Vital Signs Temp 98.1 F 05/06/20 13:38 Pulse 100 05/06/20 13:38 Resp 16 05/06/20 13:38 BP 142/90 H 05/06/20 13:38 Pulse Ox 99 05/06/20 13:38 - Orders/Labs/Meds Orders: Active Orders 24 hr Category Date Time Status Peripheral IV Care [RC] . DIRECTED Care 05/06/20 14:07 Active Shoulder 1V Rt [CR] Urgent Exams 05/06/20 14:56 Ordered Sodium Chloride 0.9% [Saline Flush] Med 05/06/20 14:07 Active 10 ml FLUSH ASDIRECTED PRN Peripheral IV Insertion Adult [OM.PC] Stat Oth 05/06/20 14:07 Ordered Medication Orders Sodium Chloride (Saline Flush) 10 ml FLUSH ASDIRECTED PRN PRN Reason: Keep Vein Open Last Admin: 05/06/20 14:38 Dose: 10 ml Documented by: RAMILA Rojas: Medications Generic Name Dose Route Start Last Admin Trade Name Freq PRN Reason Stop Dose Admin Sodium Chloride 10 ml 05/06/20 14:07 05/06/20 14:38 Saline Flush FLUSH 10 ml ASDIRECTED PRN Administration Keep Vein Open Discontinued Medications Generic Name Dose Route Start Last Admin Trade Name Freq PRN Reason Stop Dose Admin Fentanyl 50 mcg 05/06/20 14:07 05/06/20 14:38 Sublimaze IVPUSH 05/06/20 14:08 50 mcg ONETIME ONE Administration Ondansetron HCl 4 mg 05/06/20 14:07 05/06/20 14:37 Zofran IV 05/06/20 14:08 4 mg ONETIME ONE Administration - Radiology Interpretation Free Text/Narrative:: [facility] Final Radiology Report Call: [phone] assistance Online chat: [email or web address] Name: JAMAR GLEZ Age: 54Years F Date: 05/06/2020 SSN: -- : [id number] Study: CR HUMERUS RT Requesting Physician: ZAKIA HUTSON Images: 2 Addl Studies: Provided Clinical History: fall, injury to Rt upper arm and Rt chest wall Contrast: Contrast Medium: Contrast Amount: Contrast Method: CONFIDENTIALITY STATEMENT This report is intended only for use by the referring physician, and only in accordance with law. If you received this in error, call [phone]. Page 1 of 1 PROCEDURE INFORMATION: Exam: XR Right Humerus Exam date and time: 05/06/2020 1:53 PM Age: 54 years old Clinical indication: Injury or trauma; Fall; Blunt trauma (contusions or hematomas); Shoulder; Right; Additional info: Fall, injury to RT upper arm and RT chest wall TECHNIQUE: Imaging protocol: XR Right humerus Views: 2 or more views. COMPARISON: No relevant prior studies available. FINDINGS: Bones/joints: Acute avulsion of the greater tuberosity of at least 1 cm. Humeral shaft is intact. Ribcage intact. Soft tissues: Normal. IMPRESSION: Acute avulsion fracture of the greater tuberosity of the humeral head. Thank you for allowing us to participate in the care of your patient. Dictated and Authenticated by: Perry Auguste MD 05/06/2020 2:44 PM Central Time ([place] & [place]) [facility] Final Radiology Report Call: [phone] assistance Online chat: [email or web address] Name: JAMAR GLEZ Age: 54Years F Date: 05/06/2020 SSN: -- : [id number] Study: CR RIBS 2V WO CHEST RT Requesting Physician: ZAKIA HUTSON Images: 2 Addl Studies: Provided Clinical History: fall, injury to Rt upper arm and Rt chest wall Contrast: Contrast Medium: Contrast Amount: Contrast Method: CONFIDENTIALITY STATEMENT This report is intended only for use by the referring physician, and only in accordance with law. If you received this in error, call [phone]. Page 1 of 1 PROCEDURE INFORMATION: Exam: XR Right Ribs Exam date and time: 05/06/2020 1:56 PM Age: 54 years old Clinical indication: Injury or trauma; Fall; Rib area; Blunt trauma (contusions or hematomas); Additional info: Fall, injury to RT upper arm and RT chest wall TECHNIQUE: Imaging protocol: XR Right ribs. Views: 2 views. COMPARISON: No relevant prior studies available. FINDINGS: Bones/joints: Limited study due to motion artifact. No definite fracture. Soft tissues: Normal. No pleural effusion or pneumothorax. IMPRESSION: Study is limited by motion artifact. No definite acute rib fracture identified. Thank you for allowing us to participate in the care of your patient. Dictated and Authenticated by: Perry Auguste MD 05/06/2020 2:45 PM Central Time ([place] & [place]) XR Rt Shoulder postreduction: reduced G/H dislocation. Departure - Departure Time of Disposition: 16:00 Disposition: Home, Self-Care 01 Condition: Good Clinical Impression: Closed fracture dislocation of right shoulder Qualifiers: Encounter type: initial encounter Qualified Code(s): S42.91XA - Fracture of right shoulder girdle, part unspecified, initial encounter for closed fracture Contusion of right chest wall Qualifiers: Encounter type: initial encounter Qualified Code(s): S20.211A - Contusion of right front wall of thorax, initial encounter - Discharge Information *PRESCRIPTION DRUG MONITORING PROGRAM REVIEWED*: Not Applicable *COPY OF PRESCRIPTION DRUG MONITORING REPORT IN PATIENT NORA: Not Applicable Instructions: Shoulder Dislocation, [id number] Forms: ED Department Discharge Additional Instructions: Do not remove shoulder immobilizer until seen in clinic by compliance review specialist. Use Tylenol (Acetaminophen) or Ibuprofen (Motrin/Advil) as needed for pain. Follow directions on label for dosing and precautions. Call [phone] to schedule an appointment at [facility] in [place] for evaluation and treatment of humoral avulsion fracture and shoulder dislocation. Sepsis Event Note (ED) - Focused Exam Vital Signs: Vital Signs Temp Pulse Resp BP Pulse Ox 05/06/20 13:38 98.1 F 100 16 142/90 H 99 - My Orders Last 24 Hours: My Active Orders 05/06/20 14:07 Peripheral IV Care [RC] . DIRECTED Sodium Chloride 0.9% [Saline Flush] 10 ml FLUSH ASDIRECTED PRN Peripheral IV Insertion Adult [OM.PC] Stat 05/06/20 14:56 Shoulder 1V Rt [CR] Urgent - Assessment/Plan Last 24 Hours: My Active Orders 05/06/20 14:07 Peripheral IV Care [RC] . DIRECTED Sodium Chloride 0.9% [Saline Flush] 10 ml FLUSH ASDIRECTED PRN Peripheral IV Insertion Adult [OM.PC] Stat 05/06/20 14:56 Shoulder 1V Rt [CR] Urgent
[2020-05-06 13:39] VITALS: BP 142/90; PULSE 100
[2020-05-06] MEDS ORDERED: Ondansetron 4 MG/2 ML SDV IV ONE (14:07)
[2020-05-06] MEDS ORDERED: fentaNYL 100 MCG/2 ML SDV IVPUSH ONE (14:07)
[2020-05-06] MEDS ORDERED: Sodium Chloride 0.9% 10 ML Syringe FLUSH PRN (14:07)
--- NOTE | 2020-05-06 14:44 | CR ---
PROCEDURE INFORMATION: Exam: XR Right Humerus Exam date and time: 05/06/2020 1:53 PM Age: 54 years old Clinical indication: Injury or trauma; Fall; Blunt trauma (contusions or hematomas); Shoulder; Right; Additional info: Fall, injury to RT upper arm and RT chest wall TECHNIQUE: Imaging protocol: XR Right humerus Views: 2 or more views. COMPARISON: No relevant prior studies available. FINDINGS: Bones/joints: Acute avulsion of the greater tuberosity of at least 1 cm. Humeral shaft is intact. Ribcage intact. Soft tissues: Normal. IMPRESSION: Acute avulsion fracture of the greater tuberosity of the humeral head.
--- NOTE | 2020-05-06 14:46 | CR ---
PROCEDURE INFORMATION: Exam: XR Right Ribs Exam date and time: 05/06/2020 1:56 PM Age: 54 years old Clinical indication: Injury or trauma; Fall; Rib area; Blunt trauma (contusions or hematomas); Additional info: Fall, injury to RT upper arm and RT chest wall TECHNIQUE: Imaging protocol: XR Right ribs. Views: 2 views. COMPARISON: No relevant prior studies available. FINDINGS: Bones/joints: Limited study due to motion artifact. No definite fracture. Soft tissues: Normal. No pleural effusion or pneumothorax. IMPRESSION: Study is limited by motion artifact. No definite acute rib fracture identified.
--- NOTE | 2020-05-06 15:24 | CR ---
EXAMINATION: Shoulder Comp Rt SEX: Female AGE: 54 years CLINICAL HISTORY: 54-year-old female anterior right humeral dislocation and greater tuberosity fracture. INTERPRETATION: (Post reduction exam) SATISFACTORY REDUCTION. 1. Satisfactory positioning right humeral head relative to the glenoid of the ipsilateral scapula. 2. Large bone fragment "avulsed from greater tuberosity" lateral aspect of the humeral head repositioned. 3. No sign of post reduction scapular or proximal humeral fracture. 4. Ipsilateral acromioclavicular joint is intact. 5. Underlying ribs are unremarkable and the right hemithorax is clear. No consolidation or pneumothorax.
== END 2020-05-06 16:00 | disposition home or self-care (01) ==
LOC: DL.ED 13:24
DX: S20.211A Contusion of right front wall of thorax, initial encounter (principal); S42.251A Displaced fracture of greater tuberosity of right humerus, initial encounter for closed fracture; M19.90 Unspecified osteoarthritis, unspecified site; Z88.5 Allergy status to narcotic agent; Z79.82 Long term (current) use of aspirin; Z79.899 Other long term (current) drug therapy; W10.9XXA Fall (on) (from) unspecified stairs and steps, initial encounter
CPT/HCPCS: 01620; 23665; 71100; 73030; 73060; 96374; 96375; 99284; J2405; J2704; J3010

== ENCOUNTER 2021-10-09 03:24 | Emergency (ER) | payer MEDICAID ==
[2021-10-09 01:27] LABS: AMPHETAMINES,URINE NEGATIVE (NEGATIVE); BARBITURATES,URINE NEGATIVE (NEGATIVE); BENZODIAZEPINE,URINE NEGATIVE (NEGATIVE); MDMA (ECSTASY), URINE NEGATIVE (NEGATIVE); METHADONE,URINE NEGATIVE (NEGATIVE); METHAMPHETAMINES,URINE POSITIVE (NEGATIVE); OPIATES,URINE NEGATIVE (NEGATIVE); OXYCODONE,URINE NEGATIVE (NEGATIVE); PHENCYCLIDINE,URINE NEGATIVE (NEGATIVE); TCA,URINE NEGATIVE (NEGATIVE)
[2021-10-09 03:05] LABS: ANION GAP 11.1 mEq/L (7-13); CHLORIDE,CL 99 mmol/L (98-107); SODIUM,NA 134 mmol/L (136-145)
[2021-10-09 03:06] LABS: ESTIMATED GFR 104 mL/min (>=60)
[2021-10-09 03:08] LABS: ACETAMINOPHEN 0 ug/mL (10-30 (Therapeutic))
[2021-10-09] MEDS: Pantoprazole 40 MG Vial IVPUSH ONE ×2 (03:22→03:23)
[~2021-10-09 03:24] MED LIST changes: +GI Cocktail Oral Solution 30 ML PO ONE; -Lactated Ringers 1,000 ML IV SCH; -Sodium Chloride 0.9% 10 ML Syringe FLUSH PRN; -ceFAZolin 1 GM in Premix Bag 1 BAG IV ONE
[2021-10-09 03:49] VITALS: PULSE 78
[2021-10-09 03:51] VITALS: BP 148/90
== END 2021-10-09 03:28 | disposition home or self-care (01) ==
LOC: DL.ED 03:24
DX: K21.9 Gastro-esophageal reflux disease without esophagitis (principal); F15.10 Other stimulant abuse, uncomplicated; Z88.5 Allergy status to narcotic agent; Z90.49 Acquired absence of other specified parts of digestive tract
CPT/HCPCS: 36415; 80053; 80143; 80305; 80307; 81001; 82140; 82150; 83605; 83690; 83735; 85025; 87086; 96374; 99284; A9270; C9113

== ENCOUNTER 2022-08-08 18:13 | Emergency (ER) | payer OTHER, MEDICAID ==
[2022-08-08 18:25] VITALS: BP 114/74; PULSE 89
[2022-08-08] MEDS ORDERED: traMADol 50 MG Tab PO ONE (20:29)
[2022-08-08] MEDS ORDERED: Take Home: Acetaminophen/HYDROcodone 325-5 MG, 5 Tab Pack PO ONE (20:41)
== END 2022-08-08 21:03 | disposition home or self-care (01) ==
LOC: DL.ED 18:13
DX: S42.402A Unspecified fracture of lower end of left humerus, initial encounter for closed fracture (principal); F17.210 Nicotine dependence, cigarettes, uncomplicated; Z88.5 Allergy status to narcotic agent; V18.4XXA Pedal cycle driver injured in noncollision transport accident in traffic accident, initial encounter; Y92.410 Unspecified street and highway as the place of occurrence of the external cause
CPT/HCPCS: 29125; 36415; 73080-LT; 80307; 99282; 99283-25; A9270-GY

== ENCOUNTER 2022-08-19 19:46 | Emergency (ER) | payer OTHER, MEDICAID ==
[2022-08-19 20:54] VITALS: BP 113/70; PULSE 85
== END 2022-08-19 22:10 | disposition left against medical advice (07) ==
LOC: DL.ED 19:46
DX: Z53.21 Procedure and treatment not carried out due to patient leaving prior to being seen by health care provider (principal)

== ENCOUNTER 2024-09-19 12:48 | Emergency (ER) | payer SELFPAY ==
[2024-09-19] MEDS ORDERED: Sodium Chloride 0.9% 10 ML Syringe FLUSH PRN (13:11)
[2024-09-19 13:32] LABS: BASOPHILS PERCENT AUTO 0.5 % (0.0-1.0); EOSINOPHILS PERCENT AUTO 0.3 % (1.0-3.0); HEMATOCRIT 36.3 % (37.0-47.0); HEMOGLOBIN 12.7 g/dL (12.0-16.0); LYMPHOCYTES PERCENT AUTO 29.8 % (20.5-50.1); MEAN CORPUSCULAR VOLUME 91.4 fL (80-100); NEUTROPHILS PERCENT AUTO 59.4 % (42.2-75.2); PLATELET COUNT,PLT 146 10^3/uL (150-450); RED BLOOD CELL COUNT 3.97 10^6/uL (4.2-5.4); WHITE BLOOD CELL COUNT,WBC 6.5 10^3/uL (5.0-10.0)
[2024-09-19] MEDS: Pantoprazole 40 MG Vial IVPUSH ONE (13:34)
[2024-09-19] MEDS: Pantoprazole 40 MG in Sodium Chloride 0.9% 100 ML IV SCH (13:41)
[2024-09-19 13:50] LABS: INR 1.2 (0.9-1.2); PROTHROMBIN TIME 12.1 SEC (9.0-12.0)
[2024-09-19 13:56] LABS: ALANINE AMINOTRANSFERASE,ALT 68 U/L (14-59); ALBUMIN 3.1 g/dL (3.4-5.0); ALKALINE PHOSPHATASE 69 U/L (46-116); ASPARTATE AMNIOTRANSFERASE,AST 51 U/L (15-37); BILIRUBIN TOTAL 0.8 mg/dL (0.2-1.0); BLOOD UREA NITROGEN,BUN 36 mg/dL (7-18); BUN/CREATININE RATIO 49.3 (No establ ref range); CALCIUM 8.4 mg/dL (8.5-10.1); CARBON DIOXIDE,CO2 31 mmol/L (21-32); CHLORIDE,CL 103 mmol/L (98-107); CREATININE 0.73 mg/dL (0.55-1.02); GLUCOSE RANDOM 94 mg/dL (70-99); LACTIC ACID 0.9 mmol/L (0.4-2.0); LIPASE 34 U/L (16-77); MAGNESIUM 1.6 mg/dL (1.8-2.4); PROTEIN TOTAL,TP 7.7 g/dL (6.4-8.2); SODIUM,NA 141 mmol/L (136-145)
[2024-09-19 13:57] LABS: A/G RATIO 0.67; C-REACTIVE PROTEIN < 0.50 ng/dL (<=0.50); ESTIMATED GFR 96 mL/min (>=60)
[2024-09-19] MEDS: Iopamidol 612 MG/ML 100 ML Bottle IVPUSH ONE (14:15)
[2024-09-19 14:37] LABS: APPEARANCE,URINE CLEAR (CLEAR); BILIRUBIN,URINE NEGATIVE (NEGATIVE); COLOR,URINE YELLOW (YELLOW); GLUCOSE,URINE NEGATIVE (NEGATIVE); KETONES,URINE NEGATIVE (NEGATIVE); LEUKOCYTE ESTERASE,URINE TRACE (NEGATIVE); NITRITE,URINE NEGATIVE (NEGATIVE); OCCULT BLOOD,URINE NEGATIVE (NEGATIVE); PROTEIN,URINE NEGATIVE (NEGATIVE)
[2024-09-19 14:41] LABS: AMPHETAMINES,URINE POSITIVE (NEGATIVE); BARBITURATES,URINE NEGATIVE (NEGATIVE); BENZODIAZEPINE,URINE NEGATIVE (NEGATIVE); MDMA (ECSTASY), URINE POSITIVE (NEGATIVE); METHADONE,URINE NEGATIVE (NEGATIVE); METHAMPHETAMINES,URINE POSITIVE (NEGATIVE); OPIATES,URINE NEGATIVE (NEGATIVE); OXYCODONE,URINE NEGATIVE (NEGATIVE); PHENCYCLIDINE,URINE NEGATIVE (NEGATIVE); TCA,URINE NEGATIVE (NEGATIVE)
[2024-09-19 14:52] LABS: BACTERIA,URINE FEW /HPF (0-FEW/HPF); EPITHELIAL CELLS,URINE RARE /HPF (NOT SEEN); RBC,URINE NOT SEEN /HPF (0-5); WBC,URINE 0-5 /HPF (0-5/HPF)
[2024-09-19] MEDS: Magnesium Sulfate 2 GM/50 mL 2 GM in Premix Bag 1 BAG IV ONE (14:53)
[2024-09-19] MEDS: NS with KCl 40mEq 1,000 ML IV SCH (15:03)
[2024-09-19] MEDS: Piperacillin/Tazobactam 3.375 GM in Sodium Chloride 0.9% 100 ML IV ONE (16:38)
[2024-09-19] MEDS: Octreotide 100 MCG/ML SDV SUBCUT ONE (16:38)
[2024-09-19] MEDS: Octreotide 100 MCG in Sodium Chloride 0.9% 99 ML IV SCH (16:39)
[2024-09-19] MEDS: LORazepam 2 MG/ML SDV IVPUSH ONE (17:50)
[2024-09-19 19:12] VITALS: BP 133/82; PULSE 82
== END 2024-09-19 18:59 ==
LOC: DL.ED 12:48
DX: K92.0 Hematemesis (principal); E83.42 Hypomagnesemia; F17.200 Nicotine dependence, unspecified, uncomplicated; Z86.16 Personal history of COVID-19; Z90.49 Acquired absence of other specified parts of digestive tract; Z88.5 Allergy status to narcotic agent; Z79.899 Other long term (current) drug therapy
CPT/HCPCS: 36415; 71045; 74177; 80053; 80305; 80307; 81001; 83605; 83690; 83735; 84484; 85025; 85610; 85730; 86140; 86850; 86900; 86901; 87040; 87086; 93005; 93010; 96365; 96366; 96368; 96372; 96375; 99284; 99285; J2060; J2354; J2470; J2543; J3475; J3480; Q9967

== ENCOUNTER 2024-12-07 15:10 | Inpatient (IN) | payer MEDICAID ==
[2024-12-07] MEDS ORDERED: Sodium Chloride 0.9% 10 ML Syringe FLUSH PRN ×2 (15:31→20:30)
[2024-12-07 15:56] LABS: BASOPHILS PERCENT AUTO 0.8 % (0.0-1.0); EOSINOPHILS PERCENT AUTO 0.2 % (1.0-3.0); LYMPHOCYTES PERCENT AUTO 27.5 % (20.5-50.1); MONOCYTES PERCENT AUTO 12.9 % (2-8); NEUTROPHILS PERCENT AUTO 58.6 % (42.2-75.2); PLATELET COUNT,PLT 223 10^3/uL (150-450); RED BLOOD CELL COUNT 3.07 10^6/uL (4.2-5.4); WHITE BLOOD CELL COUNT,WBC 5.3 10^3/uL (5.0-10.0)
[2024-12-07 16:17] LABS: ALANINE AMINOTRANSFERASE,ALT 40 U/L (14-59); ASPARTATE AMNIOTRANSFERASE,AST 30 U/L (15-37); BILIRUBIN TOTAL 0.5 mg/dL (0.2-1.0); BLOOD UREA NITROGEN,BUN 18 mg/dL (7-18); CARBON DIOXIDE,CO2 30 mmol/L (21-32); CHLORIDE,CL 98 mmol/L (98-107); CREATININE 0.60 mg/dL (0.55-1.02); GLUCOSE RANDOM 116 mg/dL (70-99); POTASSIUM,K 3.6 mmol/L (3.5-5.1); PROTEIN TOTAL,TP 7.7 g/dL (6.4-8.2); SODIUM,NA 134 mmol/L (136-145)
[2024-12-07 16:20] LABS: LACTIC ACID 1.6 mmol/L (0.4-2.0)
[2024-12-07 16:24] LABS: A/G RATIO 0.71; ESTIMATED GFR 105 mL/min (>=60); ETHANOL BLOOD MEDICAL < 3 mg/dL (0)
[2024-12-07] MEDS: Iopamidol 612 MG/ML 100 ML Bottle IVPUSH ONE (16:48)
[2024-12-07 17:51] LABS: INR 1.1 (0.9-1.2)
[2024-12-07 17:57] LABS: PTT,PARTIAL THROMBOPLSTIN TIME 20.7 SEC (22.0-34.0)
[2024-12-07 19:15] LABS: AMPHETAMINES,URINE POSITIVE (NEGATIVE); BARBITURATES,URINE NEGATIVE (NEGATIVE); MDMA (ECSTASY), URINE NEGATIVE (NEGATIVE); METHAMPHETAMINES,URINE POSITIVE (NEGATIVE); OPIATES,URINE NEGATIVE (NEGATIVE); OXYCODONE,URINE NEGATIVE (NEGATIVE); PHENCYCLIDINE,URINE NEGATIVE (NEGATIVE); TCA,URINE NEGATIVE (NEGATIVE)
[2024-12-07] MEDS ORDERED: Ondansetron 4 MG/2 ML SDV IVPUSH PRN (20:27)
[2024-12-07] MEDS: Sodium Chloride 0.9% 10 ML Syringe FLUSH SCH (21:36)
[2024-12-07 21:40] LABS: BASOPHILS PERCENT AUTO 0.6 % (0.0-1.0); EOSINOPHILS PERCENT AUTO 0.4 % (1.0-3.0); LYMPHOCYTES PERCENT AUTO 39.9 % (20.5-50.1); MONOCYTES PERCENT AUTO 9.7 % (2-8); NEUTROPHILS PERCENT AUTO 49.4 % (42.2-75.2); PLATELET COUNT,PLT 186 10^3/uL (150-450); RED BLOOD CELL COUNT 2.60 10^6/uL (4.2-5.4); WHITE BLOOD CELL COUNT,WBC 4.9 10^3/uL (5.0-10.0)
[2024-12-07 22:20] LABS: IRON,FE 8.0 ug/dL (50-170); PERCENT FE SATURATION 2.1 % (20.0-50.0)
[2024-12-07 22:21] LABS: FOLIC ACID 8.0 ng/mL (8.6-58.9)
[2024-12-08] MEDS: Sucralfate Suspension 1 GM/10 ML Cup PO SCH ×2 (05:26→20:31)
[2024-12-08 08:16] LABS: BASOPHILS PERCENT AUTO 1.3 % (0.0-1.0); EOSINOPHILS PERCENT AUTO 1.0 % (1.0-3.0); LYMPHOCYTES PERCENT AUTO 37.5 % (20.5-50.1); MONOCYTES PERCENT AUTO 10.9 % (2-8); NEUTROPHILS PERCENT AUTO 49.3 % (42.2-75.2); PLATELET COUNT,PLT 183 10^3/uL (150-450); RED BLOOD CELL COUNT 2.62 10^6/uL (4.2-5.4); WHITE BLOOD CELL COUNT,WBC 3.8 10^3/uL (5.0-10.0)
[2024-12-08 08:31] LABS: INR 1.1 (0.9-1.2)
[2024-12-08 08:36] LABS: A/G RATIO 0.65; ALANINE AMINOTRANSFERASE,ALT 32.0 U/L (14-59); ASPARTATE AMNIOTRANSFERASE,AST 24.0 U/L (15-37); BILIRUBIN DIRECT 0.1 mg/dL (0.0-0.2); BILIRUBIN INDIRECT 0.3; BILIRUBIN TOTAL 0.4 mg/dL (0.2-1.0); BLOOD UREA NITROGEN,BUN 11.0 mg/dL (7-18); CARBON DIOXIDE,CO2 28.0 mmol/L (21-32); CHLORIDE,CL 104.0 mmol/L (98-107); CREATININE 0.5 mg/dL (0.55-1.02); EST CRCL DRUG DOSING (CG) 132.18 mL/min; ESTIMATED GFR 109.0 mL/min (>=60); GLUCOSE RANDOM 111.0 mg/dL (70-99); PHOSPHORUS 3.7 mg/dL (2.6-4.7); POTASSIUM,K 3.3 mmol/L (3.5-5.1); PROTEIN TOTAL,TP 6.1 g/dL (6.4-8.2); SODIUM,NA 137.0 mmol/L (136-145)
[2024-12-08] MEDS: ferumoxytoL 500 MG in Sodium Chloride 0.9% 100 ML IV ONE (11:09)
[2024-12-08] MEDS: Potassium Chloride 20 MEQ in Premix Bag 1 BAG IV ONE (11:35)
[2024-12-08 12:44] LABS: BASOPHILS PERCENT AUTO 1.1 % (0.0-1.0); EOSINOPHILS PERCENT AUTO 2.5 % (1.0-3.0); LYMPHOCYTES PERCENT AUTO 27.2 % (20.5-50.1); MONOCYTES PERCENT AUTO 13.4 % (2-8); NEUTROPHILS PERCENT AUTO 55.8 % (42.2-75.2); PLATELET COUNT,PLT 187 10^3/uL (150-450); RED BLOOD CELL COUNT 2.73 10^6/uL (4.2-5.4); WHITE BLOOD CELL COUNT,WBC 3.6 10^3/uL (5.0-10.0)
[2024-12-08 22:11] LABS: BASOPHILS PERCENT AUTO 0.7 % (0.0-1.0); EOSINOPHILS PERCENT AUTO 0.7 % (1.0-3.0); LYMPHOCYTES PERCENT AUTO 36.6 % (20.5-50.1); MONOCYTES PERCENT AUTO 13.2 % (2-8); NEUTROPHILS PERCENT AUTO 48.8 % (42.2-75.2); PLATELET COUNT,PLT 179 10^3/uL (150-450); RED BLOOD CELL COUNT 3.59 10^6/uL (4.2-5.4); WHITE BLOOD CELL COUNT,WBC 4.3 10^3/uL (5.0-10.0)
[2024-12-09 10:26] LABS: BASOPHILS PERCENT AUTO 0.6 % (0.0-1.0); EOSINOPHILS PERCENT AUTO 0.6 % (1.0-3.0); LYMPHOCYTES PERCENT AUTO 30.5 % (20.5-50.1); MONOCYTES PERCENT AUTO 13.0 % (2-8); NEUTROPHILS PERCENT AUTO 55.3 % (42.2-75.2); PLATELET COUNT,PLT 188 10^3/uL (150-450); RED BLOOD CELL COUNT 3.79 10^6/uL (4.2-5.4); WHITE BLOOD CELL COUNT,WBC 3.6 10^3/uL (5.0-10.0)
[2024-12-09 10:40] LABS: BLOOD UREA NITROGEN,BUN 7.0 mg/dL (7-18); CARBON DIOXIDE,CO2 29.0 mmol/L (21-32); CHLORIDE,CL 105.0 mmol/L (98-107); CREATININE 0.56 mg/dL (0.55-1.02); EST CRCL DRUG DOSING (CG) 124.21 mL/min; GLUCOSE RANDOM 97.0 mg/dL (70-99); POTASSIUM,K 3.6 mmol/L (3.5-5.1); SODIUM,NA 139.0 mmol/L (136-145)
[2024-12-09 10:43] LABS: ESTIMATED GFR 106.0 mL/min (>=60)
[2024-12-09] MEDS: Magnesium Sulfate 2 GM/50 mL 2 GM in Premix Bag 1 BAG IV ONE (16:20)
[2024-12-09 17:47] VITALS: BP 127/72; PULSE 67
[2024-12-11 11:46] LABS: IONIZED CA@PH7.4 1.19 mmol/L (1.09-1.30); IONIZED CALCIUM 1.11 mmol/L (1.09-1.30)
== END 2024-12-09 18:10 | disposition left against medical advice (07) | DRG 378 ==
LOC: DL.ED 15:10 → DL.MS 19:19
PROVIDERS: ADMIT Internal Medicine; ATTEND Internal Medicine
PROC: 30233N1 Transfusion of Nonautologous Red Blood Cells into Peripheral Vein, Percutaneous Approach (ICD-10-PCS; principal; 2024-12-07)
DX: K25.4 Chronic or unspecified gastric ulcer with hemorrhage (principal); D62 Acute posthemorrhagic anemia; E44.1 Mild protein-calorie malnutrition; Z68.42 Body mass index [BMI] 45.0-49.9, adult; M17.0 Bilateral primary osteoarthritis of knee; F15.10 Other stimulant abuse, uncomplicated; F12.10 Cannabis abuse, uncomplicated; E83.51 Hypocalcemia; F41.9 Anxiety disorder, unspecified; E83.42 Hypomagnesemia; Z88.5 Allergy status to narcotic agent; Z86.16 Personal history of COVID-19; Z90.89 Acquired absence of other organs; Z90.49 Acquired absence of other specified parts of digestive tract; Z79.899 Other long term (current) drug therapy
CPT/HCPCS: 36415; 36430; 71046; 74177; 80048; 80053; 80076; 80305-QW; 80307; 82272; 82330; 82607; 82746; 83540; 83550; 83605; 83690; 83735; 84100; 85025; 85610; 85730; 86140; 86850; 86900; 86901; 86920; 86922; 96374; 96375; 99223; 99232; 99238; 99284; 99285-25; A9270-GY; J0612; J1630; J1808; J2270; J2470; J3360; J3475; J3480; J7030; P9016; Q0138; Q9967; S5010